=== PATIENT | female | born 1935 | race Caucasian/White ===

== ENCOUNTER 2022-02-21 07:56 | Emergency (ER) | payer MEDICARE, BC, MEDICAID, SELFPAY ==
--- NOTE | ~2022-02-21 | XR_ITS ---
EXAMINATION: XR hip RT 2V w AP pelvis DATE: 02/21/2022 08:34 INDICATION: Right hip pain. Fall. TECHNIQUE: An anteroposterior view of the pelvis and 2 views of right hip were obtained. COMPARISON: None. FINDINGS: There are bilateral total hip arthroplasties in near-anatomic alignment. No periprosthetic lucency to suggest loosening or infection. No asymmetric liner wear. No fracture. There is at least m oderate lumbar spondylosis. IMPRESSION: 1. 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 Reviewed, dictated and finalized at location A.
--- NOTE | ~2022-02-21 | CT_ITS ---
EXAMINATION: CT brain wo con DATE: 02/21/2022 08:20 INDICATION: Head injury. TECHNIQUE: Computed tomography (CT) of the head was performed without intravenous contrast. The mA wa s adjusted according to patient size. Iterative reconstruction technique was employed. The dose-lengt h product was 605.33 mGy-cm. COMPARISON: None FINDINGS: There is no intracranial hemorrhage, acute infarction, or abnormal intracranial mass lesion . There are scattered areas of low attenuation in the cerebral white matter, which is within normal l imits for the patient's age. There is no intracranial hemorrhage, acute infarction, or abnormal intra cranial mass lesion. The ventricles are normal in size. There are likely changes of ocular lens repla cement surgeries. There is mild mucosal thickening in the paranasal sinuses. The mastoid air cells ar e normal. There are likely changes of ocular lens replacement surgeries. IMPRESSION: 1. Normal aging brain. Reviewed, dictated and finalized at location A. IMPRESSION: 1. Normal aging brain.
[2022-02-21 07:57] VITALS: BP 171/70; PULSE 55; RESP 13; TEMP 36.3; O2SAT 99
[2022-02-21 10:12] VITALS: BP 150/71; PULSE 53; RESP 18; O2SAT 98
[2022-02-21 10:13] VITALS: BP 150/71; PULSE 52; RESP 21
[2022-02-21 10:16] VITALS: BP 160/59; PULSE 53; RESP 23; O2SAT 99
--- NOTE | 2022-02-21 10:56 | ED.FALL ---
HPI - Fall General Chief Complaint: Fall Stated Complaint: r hip & head pain s/p fall Time Seen by Provider: 02/21/22 07:57 History of Present Illness HPI Narrative: Patient is an 86-year-old female who presents the ER status post fall. She was bending over to tie her shoe when she fell onto the ground. She struck her head. Does not believe she lost consciousness. She landed on her right hip and has some pain. She was unable to get up. No shortening or external rotation of the leg. No numbness or tingling. She has no change in vision or hearing. No nausea or vomiting she is not on any blood thinners. Related Data Allergies Allergy/AdvReac Type Severity Reaction Status Date / Time meperidine Allergy Mild SEVERE Unverified 12/28/08 15:41 NAUSEA Sulfa (Sulfonamide Allergy Mild HIVES Unverified 12/28/08 15:41 Antibiotics) sulfamethoxazole Allergy Mild HIVES Unverified 12/28/08 15:41 trimethoprim Allergy Mild HIVES Unverified 12/28/08 15:41 rofecoxib Allergy Unknown Unverified 12/28/08 15:41 ANTIHISTAMINE Allergy Unknown Uncoded 12/28/08 15:41 Review of Systems Review of Systems: All systems reviewed & are unremarkable except as noted in HPI and below Constitutional: Constitutional: Denies chills and Denies fever(s) Eyes: Eyes: Denies change in vision Musculoskeletal: Musculoskeletal: Reports arthralgias, Denies joint swelling and Denies muscle cramps Neurologic: Denies syncope, Denies headache(s), Denies focal weakness and Denies numbness PMFSH Past Medical History Medical History (Updated 02/21/22 @ 11:01 by Gian Charles MD) GERD (gastroesophageal reflux disease) Hyperlipidemia Hypertension Surgical History Surgical History (Updated 02/21/22 @ 11:01 by Gian Charles MD) History of colonoscopy History of hip replacement Social History Social History (Updated 02/21/22 @ 11:01 by Gian Charles MD) Smoking status: Never smoker Exam Narrative: GENERAL: Well-appearing, well-nourished, and in no acute distress. HEAD: Normocephalic, atraumatic. ENT: Mucous membranes moist. CHEST: Clear to auscultation. No respiratory distress. HEART: Regular rate and rhythm. Normal peripheral pulses. ABDOMEN: Soft, nontender, nondistended. EXTREMITIES: Normal range of motion. No edema. SKIN: Warm, dry, no rash. NEURO: Alert and oriented x3. PSYCH: Normal mood and affect. Course Course Emergency Course: Up and ambulatory without issue. Discharge home. Vital Signs Vital signs: Vital Signs Temperature 97.3 F L 02/21/22 07:57 Pulse Rate 55 L 02/21/22 07:57 Respiratory Rate 13 02/21/22 07:57 Blood Pressure 171/70 H 02/21/22 07:57 Pulse Oximetry 99 02/21/22 07:57 Oxygen Delivery Room Air 02/21/22 07:57 Temperature 97.3 F L 02/21/22 07:57 Pulse Rate 53 L 02/21/22 10:12 Respiratory Rate 18 02/21/22 10:12 Blood Pressure 150/71 H 02/21/22 10:12 Pulse Oximetry 98 02/21/22 10:12 Oxygen Delivery Room Air 02/21/22 07:57 MDM - Fall Imaging Data Radiologist's impression: ITS Impressions Head CT 02/21/22 08:24 IMPRESSION: 1. Normal aging brain. Hip/Pelvis X-Ray 02/21/22 08:39 IMPRESSION: 1. 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 Discharge Plan Discharge Clinical Impression: Acute hip pain Patient Disposition: Home, Self-Care Condition: Stable Instructions: Hip Pain (ED) Additional Instructions: Return the ER if you have recurrent falls, you strike your head lose consciousness, you have chest pain or shortness of breath, you have additional concerns. Follow-up/Referrals: UNKNOWN,DOCTOR [Primary Care Provider] - 1 Week
== END 2022-02-21 11:22 ==
PROVIDERS: Emergency Provider Emergency Medicine
DX: M25.551 Pain in right hip (principal); R51.9 Headache, unspecified; E78.5 Hyperlipidemia, unspecified; I10 Essential (primary) hypertension; W18.30XA Fall on same level, unspecified, initial encounter
CPT/HCPCS: 70450; 73502; 99284

== ENCOUNTER 2023-04-24 14:24 | Emergency (ER) | payer MEDICARE, MEDICAID, SELFPAY ==
[2023-04-24] VITALS (9 sets, daily range): BP systolic 132–161; BP diastolic 74–118; PULSE 57–65; RESP 16–26; TEMP 36.7; O2SAT 97–98
--- NOTE | ~2023-04-24 | XR_ITS ---
EXAMINATION: XR chest 2V DATE: 04/24/2023 16:01 INDICATION: Cough and congestion. TECHNIQUE: Frontal and lateral views of the chest were obtained. COMPARISON: Chest 2 views 10/29/2004, CT abdomen 12/09/2007 FINDINGS: There is no pneumonia, pleural effusion, or pneumothorax. The heart size is normal. There a re changes of posterior fusion procedure in cervicothoracic spine. IMPRESSION: 1. No acute cardiopulmonary disease. Reviewed, dictated and finalized at location A.
--- NOTE | ~2023-04-24 | CT_ITS ---
EXAMINATION: CT soft tissue neck w con DATE: 04/24/2023 19:29 INDICATION: TECHNIQUE: Computed tomography (CT) of the neck was performed with 75 mL Omnipaque-350 intravenous co ntrast. The dose-length product was 425.45 mGy-cm. COMPARISON: None FINDINGS: Enlarged multinodular thyroid. Asymmetric enlargement of the right submandibular gland. The left [place] bmandibular gland is small. There is no cervical lymphadenopathy. There are no masses identified. The superior mediastinum is unremarkable. Minimal airway debris within the distal trachea at the l evel of the rudi. Asymmetric calcification of the right arytenoid cartilage. Parapharyngeal and pr e-glottic fat planes are preserved. The visualized lung parenchyma is clear. The orbits are unrema rkable. Mild mucosal thickening in the bilateral maxillary sinuses and anterior ethmoid air cells, the remaining aerated spaces are clear. Aberrant right subclavian artery. Uncomplicated anterior ce rvical fusion hardware and interbody devices spanning C3-C7. Multilevel moderate central canal narrow ing. Multilevel moderate bilateral neural foraminal narrowing. Grade 1 anterolistheses at C2-3 and T1 -2. Grade 2 anterolisthesis at C7-T1. Dental caries and periodontal disease IMPRESSION: Prominent right submandibular gland, small left submandibular gland, which may reflect post surgical change in the left versus enlargement on the right. Minimal airway debris/secretions in the distal trachea. Multinodular goiter. Reviewed, dictated and finalized at location K.
--- NOTE | 2023-04-24 14:51 | ECG_ITS ---
Measurements Intervals [place] Rate: 61 P: 96 UT: 177 QRS: 28 QRSD: 84 T: 9 QT: 385 QTc: 391 Interpretive Statements SINUS RHYTHM WITH OCCASIONAL SUPRAVENTRICULAR PREMATURE COMPLEXES NO PREVIOUS ECG AVAILABLE FOR COMPARISON Electronically Signed On 04-25-2023 8:50:44 CDT by Danilo Marshall M.D.
[2023-04-24 15:09] LABS: Basophils Absolute Auto 0.1 K/mm3 (0.0-0.1); Basophils Percent Auto 0.7 % (0.2-1.2); Eosinophils Absolute Auto 0.7 K/mm3 (0-0.3); Eosinophils Percent Auto 6.3 % (0-4.4); Hematocrit 42.3 % (37.0-47.0); Hemoglobin 13.6 g/dL (12.0-15.0); Immature Granulocyte Absolute 0.03 K/mm3 (0.00-0.031); Immature Granulocyte Percent A 0.3 % (0-0.5); Lymphocytes Percent Auto 26.1 % (18.3-44.2); Mean Corpuscular HGB Conc 32.2 g/dl (32-36); Mean Corpuscular Hemoglobin 30.1 pg (26-34); Mean Corpuscular Volume 93.6 fl (80-100); Mean Platelet Volume 10.3 fl (7.4-10.4); Monocytes Percent Auto 9.3 % (2.6-8.5); Neutrophils Absolute Auto 5.9 K/mm3 (1.3-6.7); Neutrophils Percent Auto 57.3 % (45.5-73.1); Platelet Count Result 209 k/mm3 (150-375); Red Blood Count 4.52 M/mm3 (4.2-5.4); White Blood Count 10.4 K/mm3 (4.5-10.0)
[2023-04-24 15:18] LABS: Alanine Aminotransferase 21 U/L (6-35); Albumin Level 4.3 g/dL (3.5-5.1); Alkaline Phosphatase 108 U/L (38-126); Anion Gap 7 mmol/L (8-16); Aspartate Amino Transferase 25 U/L (14-36); Bilirubin,Total 0.6 mg/dL (0.2-1.3); Blood Urea Nitrogen 28 mg/dL (7-17); Calcium 10.6 mg/dL (8.4-10.2); Carbon Dioxide 26 mmol/L (22-30); Chloride 104 mmol/L (98-107); Estimated CRCL calculation 24 ml/min; Estimated Glomerular Filt Rate 39; Glucose 114 mg/dL (65-110); Sodium 137 mmol/L (137-145)
--- NOTE | 2023-04-24 16:52 | ED.SOB ---
HPI - SOB/Dyspnea General Chief Complaint: Shortness of Breath/Dyspnea Stated Complaint: shortness of breath Time Seen by Provider: 04/24/23 16:22 Source: patient and family Limitations: no limitations History of Present Illness HPI Narrative: Patient is an 87-year-old female present to the emergency department for dyspnea and wheezing. Family notes that the patient has had audible wheezing since February and has been evaluated for this extensively as an outpatient in which late March she had a chest x-ray and was started on Singulair and then more recently was also started on Combivent. Patient denies any smoking or new exposures and denies any history of asthma. Patient is unsure as to whether or not the breathing treatments have ever helped her. Patient notes that she has had a cough for the past few weeks that is intermittently productive of yellow sputum without any significant changes. Patient admits to some mild shortness of breath today but notes that this is similar to shortness of breath she has been experiencing for the past couple months. 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 Patient denies any recent injuries, recent illness, sick contacts, fever, chest pain, abdominal pain, nausea, vomiting, diarrhea, melena, hematochezia, dysuria, numbness, weakness, sore throat, rhinorrhea, rash. Family notes that the patient has chronic bilateral lower extremity swelling without any unilateral nature to it or any recent changes. Family denies any history of heart failure or heart disease. Patient denies any history of blood clots or use of blood thinners. Family notes that the patient lives at [facility] and overall has been well as of late without any significant changes but they wanted her to get checked out as the wheezing sounded more audible today. 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 Patient and family note that she has difficulty with using an albuterol inhaler and has never had a nebulizer machine. Related Data Allergies Allergy/AdvReac Type Severity Reaction Status Date / Time meperidine Allergy Mild SEVERE Unverified 04/24/23 17:00 NAUSEA Sulfa (Sulfonamide Allergy Mild HIVES Unverified 04/24/23 17:00 Antibiotics) sulfamethoxazole Allergy Mild HIVES Unverified 04/24/23 17:00 trimethoprim Allergy Mild HIVES Unverified 04/24/23 17:00 rofecoxib Allergy Unknown Rash Unverified 04/24/23 17:00 [facility] Past Medical History Medical History GERD (gastroesophageal reflux disease) Hyperlipidemia Hypertension Surgical History Surgical History History of colonoscopy History of hip replacement Social History Social History Smoking status: Never smoker Exam Const: General: no acute distress Nutritional Appearance: well nourished Orientation/consciousness: patient oriented x3 HENMT: Head: normal to inspection Face/Nose/Sinus: Normal nares present Mouth: Yes moist mucous membranes Throat: posterior oropharynx normal Eyes: Conjunctivae: conjunctivae normal Pupils: Equal, round and reactive pupils present Neck: Neck: normal visual inspection Other: No palpable masses. No palpable goiter. Resp: Effort & Inspection: normal respiratory effort, not labored, not tachypneic and no use of accessory muscles Auscultation: no rales, rhonchi and wheezes Other: expiratory wheeze with a mildly prolonged expiratory phase. Cardio: Rate: regular rate Rhythm: regular rhythm Heart sounds: no murmurs GI: Inspection: non-distended GI Palp: Yes Soft to palpation and No Tenderness to pa
[2023-04-24] MEDS: methylPREDNISolone SOD SUCC 40 MG VIAL IV PUSH (17:01)
[2023-04-24] MEDS: IPRATROPIUM BR 0.02% INH SOLN 0.5 MG/2.5 ML VIAL INHALATION ×2 (17:04→18:50)
[2023-04-24] MEDS: ALBUTEROL SULFATE NEB 2.5 MG/3 ML INH INHALATION ×2 (17:05→18:50)
[2023-04-24 17:21] LABS: Troponin I < 0.012 ng/mL (0.000-0.034)
== END 2023-04-24 22:05 ==
PROVIDERS: Preventive Medicine Aerospace Medicine; Emergency Provider Student in an Organized Health Care Education/Training Program
DX: R06.2 Wheezing (principal); E78.5 Hyperlipidemia, unspecified; I10 Essential (primary) hypertension; K21.9 Gastro-esophageal reflux disease without esophagitis; Z96.649 Presence of unspecified artificial hip joint; E04.2 Nontoxic multinodular goiter; I49.1 Atrial premature depolarization
CPT/HCPCS: 36415; 70491; 71046; 80053; 84484; 85025; 93005; 94640; 96374; 99284; J2920; Q9967

== ENCOUNTER 2024-05-28 08:09 | Inpatient (IN) | payer MEDICARE, MEDICAID, SELFPAY ==
[2024-05-28] VITALS (26 sets, daily range): BP systolic 104–153; BP diastolic 53–90; PULSE 51–92; RESP 13–23; TEMP 36.2–36.8; O2SAT 83–100; BMI 25.4
--- NOTE | ~2024-05-28 | XR_ITS ---
EXAMINATION: XR chest 2V DATE: 05/28/2024 10:04 INDICATION: Shortness of breath TECHNIQUE: frontal and lateral views of the chest were obtained. COMPARISON: Chest radiograph dated 04/24/2023 FINDINGS: The lungs are clear with no focal airspace opacities, pulmonary edema, pleural effusion or pneumothor ax. The cardiomediastinal silhouette is normal. Instrumented cervical anterior spinal fusion with ant erior plate and screw fixation. Bilateral rotator cuff arthropathy. Moderate thoracic spondylosis. IMPRESSION: 1. No acute cardiopulmonary disease. Reviewed, dictated and finalized at location B.
--- NOTE | ~2024-05-28 | CT_ITS ---
EXAMINATION: CT diagnostic chest wo con DATE: 05/29/2024 10:12 INDICATION: r/o Pneumonia TECHNIQUE: Computed tomography (CT) of the chest was performed without intravenous contrast. Addition al 3D reconstructions utilizing coronal maximum intensity projection (MIP) were performed. Automated exposure control and iterative reconstruction technique were employed. The dose-length product was 25 3.80 mGy-cm. COMPARISON: None FINDINGS: Mild dependent and basilar atelectasis in the bilateral lower lobes and mild discoid atelectasis at t he anterior segment of the right upper lobe along the minor fissure. No pneumonia, pulmonary edema or pleural effusion. There are a few scattered tiny <4 mm nodules in the bilateral upper lobes. Heart s ize is normal. No pericardial effusion. Thoracic aorta is normal in caliber. Normal anatomic variant retroesophageal aberrant right subclavian artery. No pathologically enlarged thoracic lymphadenopathy . Multinodular goiter. Visualized upper abdomen is unremarkable. Partially visualized anterior plate- screw fixation for lower cervical anterior spinal fusion. Moderate to severe upper thoracic predomina nt spondylosis with 3 mm anterolisthesis T1 on T2. Bilateral rotator cuff arthropathy. 1.7 x 1.5 x 1. 2 cm lytic lesion at the anterior T11 vertebral body suspicious for metastatic disease. No other susp icious lytic bone lesions identified. IMPRESSION: 1. Mild atelectasis in the bilateral lower lungs. No pneumonia or other acute cardiopulmonary disease . 2. Prominent lytic lesion at the anterior T11 vertebral body suspicious for malignancy/metastatic dis ease. 3. Multinodular goiter. Reviewed, dictated and finalized at location A. IMPRESSION: 1. Mild atelectasis in the bilateral lower lungs. No pneumonia or other acute c ardiopulmonary disease. 2. Prominent lytic lesion at the anterior T11 vertebral body suspicious for mal ignancy/metastatic disease. 3. Multinodular goiter.
--- NOTE | 2024-05-28 08:28 | ECG_ITS ---
Test Date: 2024-05-28 08:17:28 Measurements Intervals [place] Rate: 58 P: 83 NE: 184 QRS: 43 QRSD: 86 T: -12 QT: 412 QTc: 405 Interpretive Statements SINUS BRADYCARDIA NONSPECIFIC ST & T-WAVE ABNORMALITY- INF/LAT LEADS BASELINE ARTIFACT- I, II, III, AVR, AVL, AVF, V1-V6 BORDERLINE ECG No previous ECG available for comparison Electronically Signed On 05-28-2024 08:44:54 CDT by Dimitry Schmid D.O.
[2024-05-28] MEDS: methylPREDNISolone SOD SUCC 125 MG VIAL IV PUSH (08:33)
[2024-05-28 08:46] LABS: Base Excess ABG -1.4 mEq/l (+/-2.0); Fractional Inspired Oxygen 21 %; HCO3 ABG 23.3 mEq/l (22.0-26.0); Oxygen Content ABG 19.5 %vol (16.0-22.0); Oxygen Saturation ABG 92.1 % (95.0-100.0); Oxyhemoglobin 91.2 % THb (90.0-100.0); PCO2 ABG 39.6 mmHg (35.0-45.0); PO2 ABG 63.3 mmHg (80.0-100.0); PO2 FiO2 Ratio Arterial Blood 3.01 %; Total Hemoglobin 15.2 g/dL (12.0-18.0); pH ABG 7.388 (7.350-7.450)
[2024-05-28 08:47] LABS: Device ROOM AIR; Modified Allen's Test Pass; Site Drawn RIGHT RADIAL
--- NOTE | 2024-05-28 08:55 | ED.AMS ---
HPI - Altered Mental Status General Chief Complaint: Altered Mental Status Stated Complaint: AMS Time Seen by Provider: 05/28/24 08:09 History of Present Illness HPI narrative: Patient is an 88-year-old female who presents to the ER from [facility] with altered mental status and shortness of breath. Typically orient x4 but only oriented to self at this time. She has audible wheezing from the bedside. She has been getting been nebulizer treatments by EMS without improvement. She has no reports of pain. There is no known history of infection. Chart review shows no evidence of heart failure. Related Data Home Medications Medication Instructions Recorded Confirmed cholecalciferol (vitamin D3) 25 25 mcg PO DAILY 05/28/24 05/28/24 mcg (1,000 unit) tablet (Vitamin D3) fluticasone propionate 50 2 spray intranasal DAILY PRN 05/28/24 05/28/24 mcg/actuation nasal Congestion spray,suspension gabapentin 100 mg capsule 200 mg PO TID 05/28/24 05/28/24 (Neurontin) ipratropium 20 mcg-albuterol 100 1 puff inhalation Q4H 05/28/24 05/28/24 mcg/actuation mist for inhalation (Combivent Respimat) loratadine 10 mg tablet (Claritin) 10 mg PO DAILY 05/28/24 05/28/24 metoprolol tartrate 50 mg tablet 50 mg PO Q12H 05/28/24 05/28/24 montelukast 10 mg tablet 10 mg PO DAILY 05/28/24 05/28/24 paroxetine HCl 10 mg tablet (Paxil) 10 mg PO QAM 05/28/24 05/28/24 quetiapine 50 mg tablet 50 mg PO HS 05/28/24 05/28/24 rosuvastatin 20 mg tablet 20 mg PO DAILY 05/28/24 05/28/24 spironolactone 25 1 tablet PO DAILY 05/28/24 05/28/24 mg-hydrochlorothiazide 25 mg tablet Allergies Allergy/AdvReac Type Severity Reaction Status Date / Time meperidine Allergy Mild SEVERE Verified 05/28/24 15:27 NAUSEA Sulfa (Sulfonamide Allergy Mild HIVES Verified 05/28/24 15:27 Antibiotics) sulfamethoxazole Allergy Mild HIVES Verified 05/28/24 15:27 trimethoprim Allergy Mild HIVES Verified 05/28/24 15:27 rofecoxib Allergy Unknown Rash Verified 05/28/24 15:27 Review of Systems Review of Systems: ROS unobtainable: Yes unobtainable due to mental status PMFSH Past Medical History Medical History GERD (gastroesophageal reflux disease) Hyperlipidemia Hypertension Surgical History Surgical History History of colonoscopy History of hip replacement Social History Social History Smoking status: Former smoker Tobacco type: cigarettes Alcohol intake: never Substance use: never Do You Feel Safe in your Home?: Yes Lack of Transportation: No Lack of Food: Never True Current Housing: I Have Housing Concerned About Future Housing: No Difficulty Paying Gas/Electric Bills: No Difficulty Paying for Meds: No Currently Unemployed: No Education: High School Diploma/GED Difficulty w/ Childcare or Family Care: No Spiritual care concerns: No Exam Narrative: GENERAL: Well-appearing, well-nourished, and in no acute distress. HEAD: Normocephalic, atraumatic. EYES: PERRL and EOMI. ENT: Mucous membranes moist. CHEST: Coarse wheezing in all lung overton.. No respiratory distress. HEART: Bradycardic and regular. Normal peripheral pulses. ABDOMEN: Soft, nontender, nondistended. EXTREMITIES: Normal range of motion. No edema. SKIN: Warm, dry, no rash. NEURO: Alert and oriented x1. PSYCH: Normal mood and affect. Course Course Emergency Course: Discussed with patient's son. Admit to hospitalist service with IV antibiotics given abnormal lung sounds, elevated white blood cell count and altered mental status. May have pneumonia. Creatinine elevated from baseline. Vital Signs Vital signs: Vital Signs Temperature 97.4 F L 05/28/24 08:09 Pulse Rate 58 L 05/28/24 08:09 Respiratory Rate 19 05/28/24 08:09 Blood Pressure 153/90 H 05/28/24 08:09
[2024-05-28 08:59] LABS: Alanine Aminotransferase 23 U/L (6-35); Albumin Level 4.7 g/dL (3.5-5.1); Alkaline Phosphatase 111 U/L (38-126); Anion Gap 13 mmol/L (4-12); Aspartate Amino Transferase 29 U/L (14-36); Bilirubin,Total 0.8 mg/dL (0.2-1.3); Blood Urea Nitrogen 39 mg/dL (7-17); Calcium 10.7 mg/dL (8.4-10.2); Carbon Dioxide 28 mmol/L (22-30); Chloride 98 mmol/L (98-107); Estimated CRCL calculation 15 ml/min; Estimated Glomerular Filt Rate 24; Glucose 112 mg/dL (65-110); Potassium 3.8 mmol/L (3.4-5.0); Sodium 139 mmol/L (137-145)
[2024-05-28 09:10] LABS: Basophils Absolute Auto 0.1 K/mm3 (0.0-0.1); Basophils Percent Auto 0.8 % (0.2-1.2); Eosinophils Percent Auto 7.8 % (0-4.4); Hematocrit 45.5 % (37.0-47.0); Hemoglobin 14.6 g/dL (12.0-15.0); Immature Granulocyte Absolute 0.04 K/mm3 (0.00-0.031); Immature Granulocyte Percent A 0.3 % (0-0.5); Lymphocytes Absolute Auto 3.49 K/mm3 (0.9-3.2); Lymphocytes Percent Auto 26.6 % (18.3-44.2); Mean Corpuscular HGB Conc 32.1 g/dl (32-36); Mean Corpuscular Volume 93.4 fl (80-100); Mean Platelet Volume 11.4 fl (7.4-10.4); Monocytes Absolute Auto 1.1 K/mm3 (0.1-0.6); Monocytes Percent Auto 8.5 % (2.6-8.5); Neutrophils Absolute Auto 7.4 K/mm3 (1.3-6.7); Platelet Count Result 206 k/mm3 (150-375); Red Blood Count 4.87 M/mm3 (4.2-5.4); Red Cell Distribution Width 13.2 % (11.5-14.5); White Blood Count 13.1 K/mm3 (4.5-10.0)
[2024-05-28 09:21] LABS: Influenza A QL RT-PCR Negative (Negative); Influenza B QL RT-PCR Negative (Negative); RSV RNA, RT-PCR Negative (Negative); SARS-CoV-2 RNA PCR Negative (Negative)
[2024-05-28 09:24] LABS: Add Urine Microscopic? YES; Appearance Urine Clear (Clear); Bacteria Urine None Seen /hpf; Bilirubin Urine Negative (Negative); Blood Urine Negative (Negative); Color Urine Yellow (Yellow); Glucose Urine UA Negative (Negative); Hyaline Casts Urine Present /lpf; Ketones Urine Trace mg/dL (Negative); Leukocyte Esterase Ur Trace LEU/UL (Negative); Need Manual Microscopic Reviewed; Nitrate Urine Negative (Negative); Non Pathogenic Casts >20; Protein Urine 1+ mg/dL (Negative); Squamous Epithelial Cell Urine None Seen /hpf (Few); WBC Urine 0-5 /hpf (0-3)
--- NOTE | 2024-05-28 09:58 | PC.NURSE ---
Pt to Xray via stretcher on tele and O2 monitor at this time
[2024-05-28] MEDS: methylPREDNISolone SOD SUCC 125 MG VIAL 60 MG IV PUSH ×2 (11:51→17:43)
[2024-05-28] MEDS: AZITHROMYCIN 500 MG/NS 250 ML 500 MG/250 ML BAG 250 MG IVPB (11:52)
[2024-05-28] MEDS: IPRATROPIUM 0.5 MG/ALBUTEROL SULFATE 2.5 MG AMPUL.NEB 3 ML INHALATION ×2 (14:00→19:51)
--- NOTE | 2024-05-28 14:00 | PM.IMHP ---
H&P: HPI History of Present Illness Date/Time: 05/28/24 14:00 Chief Complaint: AMS, Shortness of Breath Narrative: 88 y/o F presents here with AMS and SOB with PMH of dementia, HTN, HLD, and GERD. The patient presents here from [facility] vis EMS for further evaluation of altered mental status and shortness of breath. Per [place] staff report EMS, patient's baseline is A&Ox4 and arrived to the ED A&Ox1-2. EMS administered an albuterol treatment prior to arrival, despite this treatment patient arrived with audible wheezing. She reports shortness of breath started maybe 2-3 days ago. She reports accompanying cough with intermittent sputum production and a tickle in her throat. Denies chest pain, dysuria, hematuria, urinary frequency, dizziness, fever, chills, or body aches. No focal numbness, focal weakness, dysarthria, vision changes or headache. No known sick contacts. No previous history of congestive heart failure. Per chart review, patient had similar presentation in April of 2023. 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 Patient also historically has difficulty using inhaler or nebulizer machine. Patient denies seeing a rotary filter operator. Initial VS at presentation: 97.4? F, HR 58, RR 19, 153/90, and 100% on RA. ED workup showed: WBC 13.1, no anemia, creatinine 2.0 and GFR 24 (previously 1.3 and GFR 39 on 04/24/2023, no recent baseline), UA equivocal. Viral PCR negative. CXR showed no acute cardiopulmonary disease. Review of Systems Review of Systems: All systems reviewed & are unremarkable except as noted in HPI and below [facility] Past Medical History Medical History GERD (gastroesophageal reflux disease) Hyperlipidemia Hypertension Surgical History Surgical History History of colonoscopy History of hip replacement Social History Social History Smoking status: Former smoker Tobacco type: cigarettes Alcohol intake: never Substance use: never Do You Feel Safe in your Home?: Yes Lack of Transportation: No Lack of Food: Never True Current Housing: I Have Housing Concerned About Future Housing: No Difficulty Paying Gas/Electric Bills: No Difficulty Paying for Meds: No Currently Unemployed: No Education: High School Diploma/GED Difficulty w/ Childcare or Family Care: No Spiritual care concerns: No Meds Home Medications and Allergies Home Medications Medication Instructions Recorded Confirmed Type albuterol sulfate 2.5 mg/0.5 mL 2.5 mg (0.5 mL) inhalation Q4H PRN 04/24/23 Rx solution for nebulization shortness of breath or wheezing #30 ea prednisone 50 mg tablet 50 mg PO DAILY 4 days #4 tabs 04/24/23 Rx cholecalciferol (vitamin D3) 25 25 mcg PO DAILY 05/28/24 05/28/24 History mcg (1,000 unit) tablet (Vitamin D3) fluticasone propionate 50 2 spray intranasal DAILY PRN 05/28/24 05/28/24 History mcg/actuation nasal Congestion spray,suspension gabapentin 100 mg capsule 200 mg PO TID 05/28/24 05/28/24 History (Neurontin) ipratropium 20 mcg-albuterol 100 1 puff inhalation Q4H 05/28/24 05/28/24 History mcg/actuation mist for inhalation (Combivent Respimat) loratadine 10 mg tablet (Claritin) 10 mg PO DAILY 05/28/24 05/28/24 History metoprolol tartrate 50 mg tablet 50 mg PO Q12H 05/28/24 05/28/24 History montelukast 10 mg tablet 10 mg PO DAILY 05/28/24 05/28/24 History paroxetine HCl 10 mg tablet (Paxil) 10 mg PO QAM 05/28/24 05/28/24 History quetiapine 50 mg tablet 50 mg PO HS 05/28/24 05/28/24 History rosuvastatin 20 mg tablet 20 mg PO DAILY 05/28/24 05/28/24 History spironolactone 25 1 tablet PO DAILY 05/28/24 05/28/24 History mg-hydrochlorothiazide 25 mg tablet Allergies Allergy/AdvReac Type
--- NOTE | 2024-05-28 15:17 | PC.NURSE ---
call to lab they will be able use urine already collected for culture
[2024-05-28] MEDS: MONTELUKAST SODIUM 10 MG TABLET PO (21:56)
[2024-05-28] MEDS: METOPROLOL TARTRATE 50 MG TAB PO (21:56)
[2024-05-28] MEDS: QUEtiapine FUMARATE 25 MG TABLET 50 MG PO (21:56)
[2024-05-28] MEDS: LACTATED RINGERS 1,000 ML 100 ML IV CONT (21:56)
[2024-05-29] VITALS (7 sets, daily range): BP systolic 108–122; BP diastolic 49–81; PULSE 65–97; RESP 16–20; TEMP 36.4–37.1; O2SAT 93–95
[2024-05-29] MEDS: methylPREDNISolone SOD SUCC 125 MG VIAL 60 MG IV PUSH ×4 (00:16→18:23)
[2024-05-29 05:49] LABS: Total Protein Urine Random 18 mg/dL; Ur Ttl Prot Creatinine Ratio 0.07 mg/mg (0-0.20)
[2024-05-29 05:53] LABS: Sodium Urine Random 77 meq/L
[2024-05-29 07:04] LABS: Basophils Percent Auto 0.1 % (0.2-1.2); Hematocrit 41.1 % (37.0-47.0); Hemoglobin 13.2 g/dL (12.0-15.0); Immature Granulocyte Absolute 0.07 K/mm3 (0.00-0.031); Immature Granulocyte Percent A 0.4 % (0-0.5); Lymphocytes Absolute Auto 1.63 K/mm3 (0.9-3.2); Lymphocytes Percent Auto 9.9 % (18.3-44.2); Mean Corpuscular HGB Conc 32.1 g/dl (32-36); Mean Corpuscular Hemoglobin 30.1 pg (26-34); Mean Corpuscular Volume 93.8 fl (80-100); Mean Platelet Volume 11.4 fl (7.4-10.4); Monocytes Absolute Auto 0.2 K/mm3 (0.1-0.6); Monocytes Percent Auto 1.4 % (2.6-8.5); Neutrophils Absolute Auto 14.5 K/mm3 (1.3-6.7); Neutrophils Percent Auto 88.2 % (45.5-73.1); Platelet Count Result 184 k/mm3 (150-375); Red Blood Count 4.38 M/mm3 (4.2-5.4); Red Cell Distribution Width 13.1 % (11.5-14.5); White Blood Count 16.5 K/mm3 (4.5-10.0)
[2024-05-29 07:52] LABS: Potassium 3.4 mmol/L (3.4-5.0)
[2024-05-29 07:58] LABS: Alanine Aminotransferase 18 U/L (6-35); Albumin Level 3.8 g/dL (3.5-5.1); Alkaline Phosphatase 90 U/L (38-126); Anion Gap 11 mmol/L (4-12); Aspartate Amino Transferase 23 U/L (14-36); Bilirubin,Total 0.4 mg/dL (0.2-1.3); Blood Urea Nitrogen 40 mg/dL (7-17); Calcium 10.3 mg/dL (8.4-10.2); Carbon Dioxide 24 mmol/L (22-30); Chloride 102 mmol/L (98-107); Creatine Kinase 57 U/L (30-135); Estimated CRCL calculation 19 ml/min; Estimated Glomerular Filt Rate 33; Glucose 154 mg/dL (65-110); Magnesium 1.6 mg/dL (1.6-2.3); Phosphorus 2.4 mg/dL (2.5-4.5); Sodium 137 mmol/L (137-145)
--- NOTE | 2024-05-29 08:17 | PM.IMPN ---
Progress Note: A&P Assessment and Plan (1) AMS (altered mental status): Qualifiers: Altered mental status type: disorientation Qualified Code(s): R41.0 - Disorientation, unspecified Code(s): R41.82 - Altered mental status, unspecified Status: Acute Assessment and Plan: - baseline A/Ox4, currently A/Ox3-4 - UA equivocal for UTI, UC pending - suspect alteration due to viral bronchitis vs PNA - no focal deficits on exam (2) Shortness of breath: Code(s): R06.02 - Shortness of breath Status: Acute Assessment and Plan: - CXR showed no acute cardiopulmonary disease - viral PCR negative - suspect viral bronchitis, however cannot exclude pneumonia. Will start patient on ceftriaxone and azithromycin on 05/28. - shavonne nebs and steroids PO - no supplemental O2 requirement (3) Acute kidney injury: Code(s): N17.9 - Acute kidney failure, unspecified Status: Acute Assessment and Plan: - creatinine 2.0 and GFR 24, previously 1.3 and GFR 39 - will start with gentle IV fluids: 1L at 100 mL/hour. - add urine sodium, CK, and protein/creatinine ratio - hold spironolactone-hydrochlorothiazide - trend renal function - trend electrolytes, correct as needed - consider nephrology consultation if no improvement with IV fluids (4) Abnormal urinalysis: Code(s): R82.90 - Unspecified abnormal findings in urine Status: Acute Assessment and Plan: - UA: 1+ protein, trace ketones, trace leuks, 3-5 RBC - UC pending - previous micro reviewed, no previous available - started on Ceftriaxone on 05/28 (5) Lytic lesion of bone on x-ray: Code(s): M89.9 - Disorder of bone, unspecified Status: Acute Assessment and Plan: CT scan of the chest showsProminent lytic lesion at the anterior T11 vertebral body suspicious for malignancy/metastatic disease. Will discuss with the daughter about this finding Plan Diet: Heart healthy GI Prophylaxis: Not currently indicated DVT Prophylaxis: SCDs Lines: Peripheral Code Status: Full code Subjective Date/time seen: 05/29/24 08:17 Interval history: Patient was evaluated at the bedside with her daughter Vonnie aside. She is the power of assistant city attorney and will make the medical decision for the patient. Her daughter reports the patient lives in assisted living and she walks with the help of walker in regards to mental status he is on and off sometimes. No major medical comorbidities except for thyroid tumor and decided not to intervene. Patient WBC today has been increased to 16.5 we believe it might be due to the steroid. Denies any fever chills or diarrhea. Chest CT shows prominent lytic lesion at the anterior T1 vertebral body suspicious for malignancy/metastatic disease. We Will discuss with the patient daughter about this finding. Review of Systems Review of Systems: All systems reviewed & are unremarkable except as noted in HPI and below Exam Narrative: A/Ox self, place, year. Some difficulty with situational recall. faint exp wheeze. heart and lungs fine. Const: General: comfortable and no acute distress Other: , female, elderly, nontoxic appearance HENMT: Face/Nose/Sinus: Normal nares present Mouth: Yes moist mucous membranes Other: TM ayala, pearly without signs of infection on the left. Eyes: General: appearance normal, both eyes and all related structures Sclera: sclerae normal Pupils: Equal, round and reactive pupils present EOM: EOMs intact bilaterally Resp: Effort & Inspection: normal respiratory effort Other: Faint expiratory wheeze. Cardio: Rate: regular rate Rhythm: regular rhythm Other: S1-S2 present without murmur, rub, ectopy GI: Other: Abdomen soft, nondistended, nontender. Skin: General skin exam: normal color and no rashes or lesions noted Wounds: no wounds Neuro: Cranial nerves: Yes Equal, round and reactive p
[2024-05-29] MEDS: METOPROLOL TARTRATE 50 MG TAB PO ×2 (08:33→21:06)
[2024-05-29] MEDS: ROSUVASTATIN 20 MG TABLET PO (08:33)
[2024-05-29] MEDS: CHOLECALCIFEROL 1,000 UNITS TABLET 1000 UNITS PO (08:33)
[2024-05-29] MEDS: LORATADINE 10 MG TABLET PO (08:33)
[2024-05-29] MEDS: GABAPENTIN 100 MG CAPSULE 200 MG PO ×3 (08:34→18:23)
[2024-05-29] MEDS: PARoxetine 10 MG TABLET PO (08:34)
[2024-05-29] MEDS: IPRATROPIUM 0.5 MG/ALBUTEROL SULFATE 2.5 MG AMPUL.NEB 3 ML INHALATION ×2 (08:40→14:44)
[2024-05-29] MEDS: UMECLIDINIUM BROMIDE 62.5 MCG ELLIPTA 1 PUFF INHALATION (08:40)
[2024-05-29] MEDS: AZITHROMYCIN 500 MG/NS 250 ML 500 MG/250 ML BAG 250 MG IVPB (10:48)
[2024-05-29 10:53] LABS: Thyroid Stimulating Hormone Reflex 0.139 uIU/mL (0.465-4.68)
[2024-05-29 11:28] LABS: Free T4 Free Thyroxine Reflex 1.24 ng/dL (0.78-2.19)
[2024-05-29 12:42] LABS: Total Triiodothyronine (T3) 0.68 NG/ML (0.97-1.69)
[2024-05-29] MEDS: MONTELUKAST SODIUM 10 MG TABLET PO (21:06)
[2024-05-29] MEDS: QUEtiapine FUMARATE 25 MG TABLET 50 MG PO (21:06)
[2024-05-30] VITALS (14 sets, daily range): BP systolic 101–130; BP diastolic 51–66; PULSE 54–90; RESP 14–20; TEMP 36.4–36.8; O2SAT 92–95
[2024-05-30] MEDS: methylPREDNISolone SOD SUCC 125 MG VIAL 60 MG IV PUSH ×2 (00:33→06:01)
[2024-05-30] MEDS: IPRATROPIUM 0.5 MG/ALBUTEROL SULFATE 2.5 MG AMPUL.NEB 3 ML INHALATION ×2 (01:21→07:30)
[2024-05-30 06:51] LABS: Hematocrit 40.1 % (37.0-47.0); Hemoglobin 13.2 g/dL (12.0-15.0); Mean Corpuscular HGB Conc 32.9 g/dl (32-36); Mean Corpuscular Hemoglobin 30.4 pg (26-34); Mean Corpuscular Volume 92.4 fl (80-100); Mean Platelet Volume 11.5 fl (7.4-10.4); Platelet Count Result 188 k/mm3 (150-375); Red Blood Count 4.34 M/mm3 (4.2-5.4); Red Cell Distribution Width 13.4 % (11.5-14.5); White Blood Count 19.7 K/mm3 (4.5-10.0)
[2024-05-30 07:00] LABS: Alanine Aminotransferase 20 U/L (6-35); Albumin Level 3.9 g/dL (3.5-5.1); Alkaline Phosphatase 87 U/L (38-126); Anion Gap 10 mmol/L (4-12); Aspartate Amino Transferase 29 U/L (14-36); Bilirubin,Total 0.4 mg/dL (0.2-1.3); Blood Urea Nitrogen 44 mg/dL (7-17); Calcium 10.4 mg/dL (8.4-10.2); Carbon Dioxide 25 mmol/L (22-30); Chloride 102 mmol/L (98-107); Estimated CRCL calculation 19 ml/min; Estimated Glomerular Filt Rate 33; Glucose 145 mg/dL (65-110); Potassium 3.3 mmol/L (3.4-5.0); Sodium 137 mmol/L (137-145)
[2024-05-30] MEDS: UMECLIDINIUM BROMIDE 62.5 MCG ELLIPTA 1 PUFF INHALATION (07:30)
[2024-05-30] MEDS: CHOLECALCIFEROL 1,000 UNITS TABLET 1000 UNITS PO (08:08)
[2024-05-30] MEDS: METOPROLOL TARTRATE 50 MG TAB PO ×2 (08:08→21:02)
[2024-05-30] MEDS: PARoxetine 10 MG TABLET PO (08:08)
[2024-05-30] MEDS: LORATADINE 10 MG TABLET PO (08:08)
[2024-05-30] MEDS: ROSUVASTATIN 20 MG TABLET PO (08:08)
[2024-05-30] MEDS: GABAPENTIN 100 MG CAPSULE 200 MG PO ×3 (08:08→16:34)
[2024-05-30] MEDS: AZITHROMYCIN 500 MG/NS 250 ML 500 MG/250 ML BAG 125 MG IVPB (08:09)
[2024-05-30] MEDS: IPRATROPIUM BR 0.02% INH SOLN 0.5 MG/2.5 ML VIAL INHALATION ×3 (11:18→19:30)
[2024-05-30] MEDS: ALBUTEROL SULFATE NEB 2.5 MG/3 ML INH INHALATION ×3 (11:18→19:30)
[2024-05-30] MEDS: POTASSIUM CHLORIDE 20 MEQ ER TABLET 40 MEQ PO (12:18)
--- NOTE | 2024-05-30 14:26 | PM.IMPN ---
Progress Note: A&P Assessment and Plan (1) AMS (altered mental status): Qualifiers: Altered mental status type: disorientation Qualified Code(s): R41.0 - Disorientation, unspecified Code(s): R41.82 - Altered mental status, unspecified Status: Acute Assessment and Plan: - baseline A/Ox4, currently A/Ox3-4 - UA equivocal for UTI, UC pending - suspect alteration due to viral bronchitis vs PNA - no focal deficits on exam (2) Shortness of breath: Code(s): R06.02 - Shortness of breath Status: Acute Assessment and Plan: - CXR showed no acute cardiopulmonary disease - viral PCR negative - suspect viral bronchitis, however cannot exclude pneumonia. Will start patient on ceftriaxone and azithromycin on 05/28. - shavonne nebs and steroids PO - no supplemental O2 requirement (3) Acute kidney injury: Code(s): N17.9 - Acute kidney failure, unspecified Status: Acute Assessment and Plan: - creatinine 2.0 and GFR 24, previously 1.3 and GFR 39 - will start with gentle IV fluids: 1L at 100 mL/hour. - add urine sodium, CK, and protein/creatinine ratio - hold spironolactone-hydrochlorothiazide - trend renal function - trend electrolytes, correct as needed - consider nephrology consultation if no improvement with IV fluids (4) Abnormal urinalysis: Code(s): R82.90 - Unspecified abnormal findings in urine Status: Acute Assessment and Plan: - UA: 1+ protein, trace ketones, trace leuks, 3-5 RBC - UC no growth - previous micro reviewed, no previous available - dc Ceftriaxone (5) Lytic lesion of bone on x-ray: Code(s): M89.9 - Disorder of bone, unspecified Status: Acute Assessment and Plan: CT scan of the chest showsProminent lytic lesion at the anterior T11 vertebral body suspicious for malignancy/metastatic disease. Will discuss with the daughter about this finding Plan Diet: Heart healthy GI Prophylaxis: Not currently indicated DVT Prophylaxis: SCDs Lines: Peripheral Code Status: Full code Subjective Date/time seen: 05/30/24 14:26 Interval history: Patient currently doing well. We discussed the findings on CT chest about lytic lesion T11 vertebral body and daughter who is POA doesnt want to pursue on the findings. Also her daughter wants physical therapy and would like to discharge her tomorrow possible. Today we discontinued the antibiotic since no evidence of pneumonia and UC is negative Review of Systems Review of Systems: All systems reviewed & are unremarkable except as noted in HPI and below Exam Narrative: A/Ox self, place, year. Some difficulty with situational recall. faint exp wheeze. heart and lungs fine. Const: General: comfortable and no acute distress Other: , female, elderly, nontoxic appearance HENMT: Face/Nose/Sinus: Normal nares present Mouth: Yes moist mucous membranes Other: TM ayala, pearly without signs of infection on the left. Eyes: General: appearance normal, both eyes and all related structures Sclera: sclerae normal Pupils: Equal, round and reactive pupils present EOM: EOMs intact bilaterally Resp: Effort & Inspection: normal respiratory effort Other: Faint expiratory wheeze. Cardio: Rate: regular rate Rhythm: regular rhythm Other: S1-S2 present without murmur, rub, ectopy GI: Other: Abdomen soft, nondistended, nontender. Skin: General skin exam: normal color and no rashes or lesions noted Wounds: no wounds Neuro: Cranial nerves: Yes Equal, round and reactive pupils present Speech: normal speech Motor exam (neuro): 5/5 motor strength present throughout Sensory Exam: normal sensation Other: A/Ox self, place, year. Some difficulty with situational recall. Extrem: General: normal to inspection Psych: Mental Status: mental status grossly normal Affect: normal affect Other: Fair insight and judgment.
[2024-05-30] MEDS: MONTELUKAST SODIUM 10 MG TABLET PO (21:02)
[2024-05-30] MEDS: QUEtiapine FUMARATE 25 MG TABLET 50 MG PO (21:02)
[2024-05-31] VITALS (10 sets, daily range): BP systolic 119; BP diastolic 56; PULSE 61–96; RESP 16–20; TEMP 36.9; O2SAT 93–98
[2024-05-31] MEDS: IPRATROPIUM BR 0.02% INH SOLN 0.5 MG/2.5 ML VIAL INHALATION ×4 (00:40→11:43)
[2024-05-31] MEDS: ALBUTEROL SULFATE NEB 2.5 MG/3 ML INH INHALATION ×4 (00:40→11:43)
[2024-05-31 06:29] LABS: Hematocrit 39.9 % (37.0-47.0); Hemoglobin 12.8 g/dL (12.0-15.0); Mean Corpuscular HGB Conc 32.1 g/dl (32-36); Mean Corpuscular Hemoglobin 29.7 pg (26-34); Mean Corpuscular Volume 92.6 fl (80-100); Mean Platelet Volume 11.5 fl (7.4-10.4); Platelet Count Result 186 k/mm3 (150-375); Red Blood Count 4.31 M/mm3 (4.2-5.4); Red Cell Distribution Width 13.6 % (11.5-14.5); White Blood Count 16.9 K/mm3 (4.5-10.0)
[2024-05-31 06:38] LABS: Alanine Aminotransferase 32 U/L (6-35); Albumin Level 3.6 g/dL (3.5-5.1); Alkaline Phosphatase 85 U/L (38-126); Anion Gap 11 mmol/L (4-12); Aspartate Amino Transferase 40 U/L (14-36); Bilirubin,Total 0.2 mg/dL (0.2-1.3); Blood Urea Nitrogen 38 mg/dL (7-17); Calcium 10.2 mg/dL (8.4-10.2); Carbon Dioxide 25 mmol/L (22-30); Chloride 103 mmol/L (98-107); Estimated CRCL calculation 22 ml/min; Estimated Glomerular Filt Rate 39; Glucose 128 mg/dL (65-110); Potassium 3.8 mmol/L (3.4-5.0); Sodium 139 mmol/L (137-145)
[2024-05-31] MEDS: PARoxetine 10 MG TABLET PO (07:39)
[2024-05-31] MEDS: ROSUVASTATIN 20 MG TABLET PO (07:39)
[2024-05-31] MEDS: predniSONE 20 MG TABLET 40 MG PO (07:40)
[2024-05-31] MEDS: GABAPENTIN 100 MG CAPSULE 200 MG PO (07:40)
[2024-05-31] MEDS: METOPROLOL TARTRATE 50 MG TAB PO (07:40)
[2024-05-31] MEDS: LORATADINE 10 MG TABLET PO (07:40)
[2024-05-31] MEDS: CHOLECALCIFEROL 1,000 UNITS TABLET 1000 UNITS PO (07:40)
[2024-05-31] MEDS: UMECLIDINIUM BROMIDE 62.5 MCG ELLIPTA 1 PUFF INHALATION (08:36)
--- NOTE | 2024-05-31 10:07 | PM.DS ---
DS: Admitting Diagnosis Discharge Date Admitting Diagnosis Pneumonia, Acute alteration in mental status, Acute kidney injury DS: Discharge Diagnosis Discharge Diagnosis (1) AMS (altered mental status): Qualifiers: Altered mental status type: disorientation Qualified Code(s): R41.0 - Disorientation, unspecified Code(s): R41.82 - Altered mental status, unspecified Status: Acute Assessment and Plan: - baseline A/Ox4, currently A/Ox3-4 - UA equivocal for UTI, UC pending - suspect alteration due to viral bronchitis vs PNA - no focal deficits on exam (2) Shortness of breath: Code(s): R06.02 - Shortness of breath Status: Acute Assessment and Plan: - CXR showed no acute cardiopulmonary disease - viral PCR negative - suspect viral bronchitis, however cannot exclude pneumonia. Will start patient on ceftriaxone and azithromycin on 05/28. - shavonne nebs and steroids PO - no supplemental O2 requirement (3) Acute kidney injury: Code(s): N17.9 - Acute kidney failure, unspecified Status: Acute Assessment and Plan: - creatinine 2.0 and GFR 24, previously 1.3 and GFR 39 - will start with gentle IV fluids: 1L at 100 mL/hour. - add urine sodium, CK, and protein/creatinine ratio - hold spironolactone-hydrochlorothiazide - trend renal function - trend electrolytes, correct as needed - consider nephrology consultation if no improvement with IV fluids (4) Abnormal urinalysis: Code(s): R82.90 - Unspecified abnormal findings in urine Status: Acute Assessment and Plan: - UA: 1+ protein, trace ketones, trace leuks, 3-5 RBC - UC no growth - previous micro reviewed, no previous available - dc Ceftriaxone (5) Lytic lesion of bone on x-ray: Code(s): M89.9 - Disorder of bone, unspecified Status: Acute Assessment and Plan: CT scan of the chest showsProminent lytic lesion at the anterior T11 vertebral body suspicious for malignancy/metastatic disease. Will discuss with the daughter about this finding Plan Diet: Heart healthy GI Prophylaxis: Not currently indicated DVT Prophylaxis: SCDs Lines: Peripheral Code Status: Full code DS: Summary Hospital Course Hospital Course: 88 y/o F presents here with AMS and SOB with PMH of dementia, HTN, HLD, and GERD. The patient presents here from [facility] for further evaluation of altered mental status and shortness of breath. Per [place] staff report EMS, patient's baseline is A&Ox4 and arrived to the ED A&Ox1-2. EMS administered an albuterol treatment prior to arrival, despite this treatment patient arrived with audible wheezing. She reports shortness of breath started maybe 2-3 days ago. She reports accompanying cough with intermittent sputum production and a tickle in her throat. Denies chest pain, dysuria, hematuria, urinary frequency, dizziness, fever, chills, or body aches. No focal numbness, focal weakness, dysarthria, vision changes or headache. No known sick contacts. No previous history of congestive heart failure. Per chart review, patient had similar presentation in April of 2023. 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 Patient also historically has difficulty using inhaler or nebulizer machine. Patient denies seeing a concept artist. Initial VS at presentation: 97.4? F, HR 58, RR 19, 153/90, and 100% on RA.ED workup showed: WBC 13.1, no anemia, creatinine 2.0 and GFR 24 (previously 1.3 and GFR 39 on 04/24/2023, no recent baseline), UA equivocal. Viral PCR negative. CXR showed no acute cardiopulmonary disease. Chest CT shows prominent lytic lesion at the anterior T1 vertebral body suspicious for malignancy/metastatic disease and discuss with the family member and they do not want to pursue any further workup. We believe the the primary cancer is from thyroid.
== END 2024-05-31 12:45 | disposition home health service (06) | DRG 194 ==
LOC: ANHED 08:33 → ANH3MEDSUR 12:06
PROVIDERS: Student in an Organized Health Care Education/Training Program; Admitting Provider General Practice; Emergency Provider Emergency Medicine; Visit Provider General Practice
DX: J18.9 Pneumonia, unspecified organism (principal); C79.51 Secondary malignant neoplasm of bone; N17.9 Acute kidney failure, unspecified; J20.8 Acute bronchitis due to other specified organisms; I10 Essential (primary) hypertension; C73 Malignant neoplasm of thyroid gland; E78.5 Hyperlipidemia, unspecified; K21.9 Gastro-esophageal reflux disease without esophagitis; M89.9 Disorder of bone, unspecified; Z20.822 Contact with and (suspected) exposure to COVID-19; Z96.649 Presence of unspecified artificial hip joint; Z87.891 Personal history of nicotine dependence
CPT/HCPCS: 36415; 36600; 71046; 71250; 80053; 81001; 82550; 82570; 82805; 82810; 83735; 84100; 84156; 84300; 84439; 84443; 84480; 85025; 85027; 87086; 87637; 93005; 94640; 96366; 96374; 96375; 96376; 97161; 97165; 97530; 97535; 99285; A9270; G0378; J0456; J0696; J2919; J7120; J7512

== ENCOUNTER 2024-06-05 23:58 | Emergency (ER) | payer MEDICARE, MEDICAID, SELFPAY ==
--- NOTE | ~2024-06-05 | XR_ITS ---
EXAMINATION: XR hip RT 2V w AP pelvis DATE: 06/06/2024 01:03 INDICATION: Right hip pain. TECHNIQUE: An anteroposterior view of the pelvis and 2 views of right hip were obtained. COMPARISON: Pelvis and right hip radiograph 02/21/2022 FINDINGS: There are bilateral total hip arthroplasties in near-anatomic alignment. No periprosthetic lucency to suggest loosening or infection. No fracture. There is severe lumbar spondylosis. IMPRESSION: 1. Bilateral total hip arthroplasties in near-anatomic alignment. Reviewed, dictated and finalized at location A.
--- NOTE | ~2024-06-05 | CT_ITS ---
EXAMINATION: CTA abd aorta runoff DATE: 06/06/2024 01:30 INDICATION: Right leg abscess. TECHNIQUE: Computed tomographic angiography (CTA) of the abdominal, pelvis, and both lower extremitie s was performed with 150 mL Omnipaque-350 intravenous contrast. Automated exposure control and iterat pearl reconstruction technique were employed. The dose-length product was 1038.13 mGy-cm. Maximum inten sity projection 3D-reconstructions of the arteries were created by the technologist on a separate wor kstation. COMPARISON: CT abdomen 12/09/2007 FINDINGS: ABDOMINAL AORTA AND ITS BRANCHES: Abdominal aorta is normal in caliber. Aortic atherosclerosis is noted. There is contiguous thrombus i n left renal artery, abdominal aorta, and superior mesenteric artery with total occlusion of left mak al artery, moderate stenosis of the abdominal aorta, and severe stenosis of superior mesenteric arter y. There is moderate stenosis of celiac axis. There is no significant stenosis of inferior mesenteric artery. PELVIC VASCULATURE: There is no significant stenosis of the common iliac arteries, external iliac arteries, or internal i liac arteries. RIGHT LOWER EXTREMITY VASCULATURE: There is thrombus in right common femoral artery with severe stenosis of common femoral artery and pr oximal superficial femoral artery and total occlusion of origin of profunda femoris. There is no sign ificant stenosis of popliteal artery, tibioperoneal trunk, or peroneal artery. There is total occlusi on of distal right anterior and posterior tibial arteries. LEFT LOWER EXTREMITY VASCULATURE: There is no significant stenosis of the femoral artery, profunda femoral artery, superficial femoral artery, popliteal artery, tibioperoneal trunk, anterior tibial artery or posterior tibial artery. The re is total occlusion of distal peroneal artery with reconstitution. ADDITIONAL FINDINGS: The visualized portions of the lung bases demonstrate mild atelectasis. The liver, gallbladder, and s pleen are normal. 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 The adrenal glands are normal. There is cortical thinning of right kidney. There is mild atrophy of left kidney. There is marked hypoenhancem ent of left kidney. Stool distends the rectum. There are no dilated loops of bowel. The appendix is normal. There are no pathologically enlarged lymph nodes. There is no free intraperitoneal fluid. The re are bilateral total hip arthroplasties. There is severe lumbar spondylosis. IMPRESSION: 1. 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 Marked hypoenhancement of left kidney. 2. Moderate stenosis of celiac axis. 3. Thrombus in right common femoral artery with severe stenosis of common femoral artery and proximal superficial femoral artery and total occlusion of origin of profunda femoris. 4. Total occlusion of right anterior and posterior tibial arteries. 5. Total occlusion distal left peroneal artery with reconstitution. 6. Acute splenic infarcts. Reviewed, dictated and finalized at location A. IMPRESSION: 1. 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 Marked hypoenhancement of left kidney. 2. Moderate stenosis of celiac axis. 3. Thrombus in right common femoral artery with severe stenosis of common femor al artery and proximal superficial femoral artery and total occlusion of origin of profunda femoris. 4. Total occlusion of right anterior and posterior tibial arteries. 5. Total oc
[2024-06-05 23:55] VITALS: BP 134/88; PULSE 75; RESP 20; TEMP 36.6; O2SAT 100
[2024-06-06] VITALS (32 sets, daily range): BP systolic 144–172; BP diastolic 60–98; PULSE 61–76; RESP 15–22; TEMP 36.7; O2SAT 95–100
--- NOTE | 2024-06-06 00:11 | ECG_ITS ---
Test Date: 2024-06-06 00:31:39 Measurements Intervals [place] Rate: 65 P: 82 SD: 188 QRS: 44 QRSD: 86 T: 29 QT: 404 QTc: 423 Interpretive Statements SINUS RHYTHM ATRIAL COUPLET LEFT VENTRICULAR HYPERTROPHY WITH ST-T CHANGE NONSPECIFIC ST & T-WAVE ABNORMALITY- ANTEROLAT/INF LEADS BASELINE ARTIFACT- I, II, III, AVR, AVL, AVF, V1-V6 BORDERLINE ECG Compared to ECG 05/28/2024 08:17:28 HEART RATE HAS INCREASED Electronically Signed On 06-06-2024 07:21:24 CDT by Dimitry Schmid D.O.
--- NOTE | 2024-06-06 00:13 | ED.GENADULT ---
HPI - General Adult General Chief complaint: Extremity Injury, Lower Stated complaint: R HIP PAIN Time Seen by Provider: 06/06/24 00:04 History of Present Illness HPI narrative: Patient is 80-year-old female who presents emergency department with chief complaint of right leg pain. Patient reports that she was at home and had sudden onset of pain in her right leg the patient reports that she could barely put any weight on it due to increasing discomfort. The patient reports that they noticed that her right foot is dusky compared to the left Related Data Home Medications Medication Instructions Recorded Confirmed cholecalciferol (vitamin D3) 25 25 mcg PO DAILY 05/28/24 05/28/24 mcg (1,000 unit) tablet (Vitamin D3) fluticasone propionate 50 2 spray intranasal DAILY PRN 05/28/24 05/28/24 mcg/actuation nasal Congestion spray,suspension gabapentin 100 mg capsule 200 mg PO TID 05/28/24 05/28/24 (Neurontin) ipratropium 20 mcg-albuterol 100 1 puff inhalation Q4H 05/28/24 05/28/24 mcg/actuation mist for inhalation (Combivent Respimat) loratadine 10 mg tablet (Claritin) 10 mg PO DAILY 05/28/24 05/28/24 metoprolol tartrate 50 mg tablet 50 mg PO Q12H 05/28/24 05/28/24 montelukast 10 mg tablet 10 mg PO DAILY 05/28/24 05/28/24 paroxetine HCl 10 mg tablet (Paxil) 10 mg PO QAM 05/28/24 05/28/24 quetiapine 50 mg tablet 50 mg PO HS 05/28/24 05/28/24 rosuvastatin 20 mg tablet 20 mg PO DAILY 05/28/24 05/28/24 Allergies Allergy/AdvReac Type Severity Reaction Status Date / Time meperidine Allergy Mild SEVERE Verified 06/06/24 00:01 NAUSEA Sulfa (Sulfonamide Allergy Mild HIVES Verified 06/06/24 00:01 Antibiotics) sulfamethoxazole Allergy Mild HIVES Verified 06/06/24 00:01 trimethoprim Allergy Mild HIVES Verified 06/06/24 00:01 rofecoxib Allergy Unknown Rash Verified 06/06/24 00:01 Review of Systems Review of Systems: A 10 system review of systems was completed on the patient and is negative except for what is stated in the HPI. Nursing and ancillary documentation was reviewed. [facility] Past Medical History Medical History GERD (gastroesophageal reflux disease) Hyperlipidemia Hypertension Surgical History Surgical History History of colonoscopy History of hip replacement Social History Social History Smoking status: Former smoker Tobacco type: cigarettes Alcohol intake: never Substance use: never Do You Feel Safe in your Home?: Yes Lack of Transportation: No Lack of Food: Never True Current Housing: I Have Housing Concerned About Future Housing: No Difficulty Paying Gas/Electric Bills: No Difficulty Paying for Meds: No Currently Unemployed: No Education: High School Diploma/GED Difficulty w/ Childcare or Family Care: No Spiritual care concerns: No Exam Narrative: GENERAL: Well-appearing, well-nourished, and in no acute distress. HEAD: Normocephalic, atraumatic. EYES: PERRLA and EOMI. ENT: Nares clear, no rhinorrhea or epistaxis. Mucous membranes moist. NECK: Supple. CHEST: Clear to auscultation. No respiratory distress. HEART: Regular rate and rhythm. No murmur heard. Normal peripheral pulses. ABDOMEN: Soft, nontender, nondistended, normal active bowel sounds. EXTREMITIES: Normal range of motion. No edema. Absent dorsalis pedis on the right about pulse the left right foot is cool and dusky there is a palpable femoral pulse present on both the left and right SKIN: Warm, dry, no rash. NEURO: No focal deficits. Alert and oriented x3. PSYCH: Normal mood and affect. Course Vital Signs Vital signs: Vital Signs Temperature 36.6 C 06/05/24 23:55 Pulse Rate 75 06/05/24 23:55 Respiratory Rate 20 06/05/24 23:55 Blood Pressure 134/88 06/05/24 23:55 Pulse Oxim
[2024-06-06 00:46] LABS: Basophils Percent Auto 0.1 % (0.2-1.2); Eosinophils Absolute Auto 0.2 K/mm3 (0-0.3); Eosinophils Percent Auto 1.5 % (0-4.4); Hemoglobin 14.2 g/dL (12.0-15.0); Immature Granulocyte Absolute 0.09 K/mm3 (0.00-0.031); Immature Granulocyte Percent A 0.6 % (0-0.5); Immature Platelet Fraction Pct 8.6 % (0.9-11.2); Lymphocytes Percent Auto 10.7 % (18.3-44.2); Mean Corpuscular Hemoglobin 30.3 pg (26-34); Mean Corpuscular Volume 91.7 fl (80-100); Mean Platelet Volume 11.3 fl (7.4-10.4); Monocytes Absolute Auto 1.2 K/mm3 (0.1-0.6); Monocytes Percent Auto 7.4 % (2.6-8.5); Neutrophils Absolute Auto 12.7 K/mm3 (1.3-6.7); Neutrophils Percent Auto 79.7 % (45.5-73.1); Platelet Count Result 135 k/mm3 (150-375); Red Blood Count 4.69 M/mm3 (4.2-5.4); Red Cell Distribution Width 13.1 % (11.5-14.5); White Blood Count 15.9 K/mm3 (4.5-10.0)
[2024-06-06 00:54] LABS: Alanine Aminotransferase 109 U/L (6-35); Albumin Level 3.8 g/dL (3.5-5.1); Alkaline Phosphatase 123 U/L (38-126); Anion Gap 9 mmol/L (4-12); Aspartate Amino Transferase 49 U/L (14-36); Blood Urea Nitrogen 38 mg/dL (7-17); Calcium 10.2 mg/dL (8.4-10.2); Carbon Dioxide 30 mmol/L (22-30); Chloride 97 mmol/L (98-107); Estimated CRCL calculation 17 ml/min; Estimated Glomerular Filt Rate 28; Glucose 121 mg/dL (65-110); Magnesium 1.3 mg/dL (1.6-2.3); Potassium 3.3 mmol/L (3.4-5.0); Sodium 136 mmol/L (137-145)
[2024-06-06 01:01] LABS: INR 1.2; Prothrombin Time 15.1 Seconds (11.1-14.7)
[2024-06-06 01:02] LABS: Partial Thromboplastin Time 26.2 Seconds (22.3-36.8)
[2024-06-06 01:05] LABS: Troponin I 0.031 ng/mL (0.000-0.034)
[2024-06-06 01:24] LABS: Add Urine Microscopic? YES; Appearance Urine Clear (Clear); Bacteria Urine None Seen /hpf; Bilirubin Urine Negative (Negative); Blood Urine Trace (Negative); Color Urine Yellow (Yellow); Glucose Urine UA Negative (Negative); Ketones Urine Negative (Negative); Leukocyte Esterase Ur 1+ LEU/UL (Negative); Need Manual Microscopic Reviewed; Nitrate Urine Negative (Negative); Protein Urine 2+ mg/dL (Negative); Specific Grav Ur 1.023 (1.001-1.035); Squamous Epithelial Cell Urine None Seen /hpf (Few); WBC Urine 21-50 /hpf (0-3); pH Urine 5.5 (5.0-9.0)
[2024-06-06] MEDS: MAGNESIUM SULF 2 GM/WATER 50ML 2 GM/50 ML BAG IVPB (02:04)
[2024-06-06] MEDS: SODIUM CHLORIDE 0.9% IV 1,000 ML 999 ML IV CONT (02:04)
[2024-06-06] MEDS: HEPARIN SODIUM 5,000 UNITS/ML VIAL 5000 UNITS IV PUSH (04:28)
[2024-06-06] MEDS: HEPARIN SOD/D5W 100 UNITS/ML 25,000 UNITS/250 ML BAG 10 UNITS IV CONT (04:28)
--- NOTE | 2024-06-06 05:07 | PC.NURSE ---
[facility] Access line called to say they will call us when an ICU bed is available.
--- NOTE | 2024-06-06 07:53 | ED.GENADULT ---
HPI - General Adult General Chief complaint: Extremity Injury, Lower Stated complaint: R HIP PAIN Time Seen by Provider: 06/06/24 00:04 Related Data Home Medications Medication Instructions Recorded Confirmed cholecalciferol (vitamin D3) 25 25 mcg PO DAILY 05/28/24 05/28/24 mcg (1,000 unit) tablet (Vitamin D3) fluticasone propionate 50 2 spray intranasal DAILY PRN 05/28/24 05/28/24 mcg/actuation nasal Congestion spray,suspension gabapentin 100 mg capsule 200 mg PO TID 05/28/24 05/28/24 (Neurontin) ipratropium 20 mcg-albuterol 100 1 puff inhalation Q4H 05/28/24 05/28/24 mcg/actuation mist for inhalation (Combivent Respimat) loratadine 10 mg tablet (Claritin) 10 mg PO DAILY 05/28/24 05/28/24 metoprolol tartrate 50 mg tablet 50 mg PO Q12H 05/28/24 05/28/24 montelukast 10 mg tablet 10 mg PO DAILY 05/28/24 05/28/24 paroxetine HCl 10 mg tablet (Paxil) 10 mg PO QAM 05/28/24 05/28/24 quetiapine 50 mg tablet 50 mg PO HS 05/28/24 05/28/24 rosuvastatin 20 mg tablet 20 mg PO DAILY 05/28/24 05/28/24 Allergies Allergy/AdvReac Type Severity Reaction Status Date / Time meperidine Allergy Mild SEVERE Verified 06/06/24 00:01 NAUSEA Sulfa (Sulfonamide Allergy Mild HIVES Verified 06/06/24 00:01 Antibiotics) sulfamethoxazole Allergy Mild HIVES Verified 06/06/24 00:01 trimethoprim Allergy Mild HIVES Verified 06/06/24 00:01 rofecoxib Allergy Unknown Rash Verified 06/06/24 00:01 [facility] [place] Past Medical History Medical History GERD (gastroesophageal reflux disease) Hyperlipidemia Hypertension Surgical History Surgical History History of colonoscopy History of hip replacement Social History Social History Smoking status: Former smoker Tobacco type: cigarettes Alcohol intake: never Substance use: never Do You Feel Safe in your Home?: Yes Lack of Transportation: No Lack of Food: Never True Current Housing: I Have Housing Concerned About Future Housing: No Difficulty Paying Gas/Electric Bills: No Difficulty Paying for Meds: No Currently Unemployed: No Education: High School Diploma/GED Difficulty w/ Childcare or Family Care: No Spiritual care concerns: No Course Vital Signs Vital signs: Vital Signs Temperature 98 F 06/05/24 23:55 Pulse Rate 75 06/05/24 23:55 Respiratory Rate 20 06/05/24 23:55 Blood Pressure 134/88 06/05/24 23:55 Pulse Oximetry 100 06/05/24 23:55 Oxygen Delivery Room Air 06/05/24 23:55 Temperature 98.0 F 06/06/24 05:50 Pulse Rate 63 06/06/24 07:37 Respiratory Rate 18 06/06/24 07:37 Blood Pressure 147/60 H 06/06/24 07:37 Pulse Oximetry 100 06/06/24 07:37 Oxygen Delivery Room Air 06/05/24 23:55 Medical Decision Making Vital Signs Vital Signs: Vital Signs Temperature 98 F 06/05/24 23:55 Pulse Rate 75 06/05/24 23:55 Respiratory Rate 20 06/05/24 23:55 Blood Pressure 134/88 06/05/24 23:55 Pulse Oximetry 100 06/05/24 23:55 Oxygen Delivery Room Air 06/05/24 23:55 Temperature 98.0 F 06/06/24 05:50 Pulse Rate 63 06/06/24 07:37 Respiratory Rate 18 06/06/24 07:37 Blood Pressure 147/60 H 06/06/24 07:37 Pulse Oximetry 100 06/06/24 07:37 Oxygen Delivery Room Air 06/05/24 23:55 Lab Data 06/06/24 00:30 06/06/24 00:30 Labs: Lab Results 06/06/24 06/06/24 06/06/24 Range/Units 00:30 00:50 03:47 WBC 15.9 H Cancelled (4.5-10.0) K/mm3 RBC 4.69 Cancelled (4.2-5.4) M/mm3 Hgb 14.2 Cancelled (12.0-15.0) g/dL Hct 43.0 Cancelled (37.0-47.0) % MCV 91.7 Cancelled (80-100) fl MCH 30.3 Cancelled (26-34) pg MCHC 33.0 Cancelled (32-36) g/dl RDW 13.1 Cancelled (11.5-14.5) % Plt Count 135 L Cancelled (150-375) k/mm3 MPV 1
[2024-06-06] MEDS: HYDROmorphone HCL INJ (*CRX) 1 MG/ML SYR 0.5 MG IV PUSH (08:07)
== END 2024-06-06 09:02 | disposition short-term general hospital (02) ==
PROVIDERS: Emergency Medicine; Emergency Provider Emergency Medicine
DX: I74.3 Embolism and thrombosis of arteries of the lower extremities (principal); I74.09 Other arterial embolism and thrombosis of abdominal aorta; N28.0 Ischemia and infarction of kidney; K55.059 Acute (reversible) ischemia of intestine, part and extent unspecified; I77.1 Stricture of artery; I10 Essential (primary) hypertension; E78.5 Hyperlipidemia, unspecified; K21.9 Gastro-esophageal reflux disease without esophagitis; Z96.643 Presence of artificial hip joint, bilateral; Z87.891 Personal history of nicotine dependence; R00.8 Other abnormalities of heart beat; I51.7 Cardiomegaly; R94.31 Abnormal electrocardiogram [ECG] [EKG]; D73.5 Infarction of spleen; Z79.899 Other long term (current) drug therapy
CPT/HCPCS: 36415; 73502; 75635; 80053; 81001; 83605; 83735; 84484; 85025; 85055; 85610; 85730; 87086; 93005; 96365; 96366; 96367; 96375; 99285; J1170; J1644; J3475; J7030; Q9967